=== PATIENT | female | born 1965 | race Caucasian/White ===

== ENCOUNTER 2020-05-17 10:04 | Emergency (ER) | payer OTHER ==
[~2020-05-17] VITALS: Ht 172.7 cm; Wt 103.6 kg
[2020-05-17] MEDS ORDERED: KETOROLAC 30 MG/1 ML ONE ×2 (10:51→13:55)
[2020-05-17] MEDS ORDERED: ONDANSETRON 2MG/ML, 2ML ONE ×2 (10:51→13:21)
[2020-05-17] MEDS ORDERED: KETOROLAC 30 MG/1 ML IVPush ONE ×2 (11:00→13:30)
[2020-05-17] MEDS ORDERED: ONDANSETRON 2MG/ML, 2ML IVPush ONE ×2 (11:00→13:30)
[2020-05-17] MEDS ORDERED: SODIUM CHLORIDE 0.9% 1,000ML IVBOLUS ONE (11:00)
--- NOTE | 2020-05-17 11:03 | NUR ---
PT SITTING UPRIGHT ON GURNEY WITH EYES CLOSED. NAD, VSS. PT PROVIDED WARM BLANKET AND ICE CHIPS (OK PER MD) PER REQUEST. PT DENIES ANY ADDITIONAL NEEDS AT THIS TIME. Addendum: 05/17/20 at 1132 by SHADE PT SITTING UPRIGHT ON GURNEY WITH EYES CLOSED. NAD. PT NOTED TO BE 88% ON ROOM AIR, PLACED ON 2L VIA NASAL CANNULA. PT PROVIDED WARM BLANKET AND ICE CHIPS (OK PER MD) PER REQUEST. PT DENIES ANY ADDITIONAL NEEDS AT THIS TIME.
[2020-05-17 11:14] LABS: BASOPHILS % (AUTO) 0 % (0-1); EOSINOPHILS % (AUTO) 1 % (1-7); LYMPHOCYTES % (AUTO) 8 % (22-44); MEAN CORPUSCULAR HEMOGLOBIN 31.1 pg (27.0-34.8); MEAN CORPUSCULAR HGB CONC 34.3 g/dL (32.4-35.8); MEAN PLATELET VOLUME 8.4 fL (7.4-10.4); MONOCYTES % (AUTO) 2 % (2-9); NEUTROPHILS % (AUTO) 89 % (42-75); PLATELET COUNT 163 x10^3/uL (130-400); RED BLOOD COUNT 4.33 x10^6/uL (3.82-5.3); RED CELL DISTRIBUTION WIDTH 13.7 % (9.6-15.2)
[2020-05-17 11:20] LABS: ALANINE AMINOTRANSFERASE 25 U/L (12-78); ALBUMIN 3.8 g/dL (3.4-5.0); ANION GAP 9 mmol/L (5-15); CALCIUM 8.4 mg/dL (8.5-10.1); CHLORIDE 110 mmol/L (98-107); CREATININE 1.06 mg/dL (0.55-1.02)
[2020-05-17 11:24] LABS: ALKALINE PHOSPHATASE 87 U/L (45-117); TOTAL PROTEIN 7.2 g/dL (6.4-8.2); TROPONIN I < 0.015 ng/mL (0.000-0.045)
[2020-05-17 11:35] LABS: MD SCAN
--- NOTE | 2020-05-17 12:05 | NUR ---
PT TO IMAGING
[2020-05-17] MEDS ORDERED: OMNIPAQUE 350 MG/ML, 75ML BOTTLE ONE (12:18)
--- NOTE | 2020-05-17 12:34 | NUR ---
BREAK RN: UA TO LAB.
--- NOTE | 2020-05-17 13:15 | NUR ---
PT SITTING UPRIGHT ON GURSAMANTHA, BRANDEN, VSS. PT REPORTS INCREASED RIGHT SIDE PAIN AND REQUESTS MD RITESH NOTIFIED. WILL MEDICATE PER EMAR. NO ADDITIONAL NEEDS AT THIS TIME. CALL LIGHT AND PERSONAL BELONGINGS WITHIN REACH.
[2020-05-17] MEDS ORDERED: MORPHINE SULFATE 4 MG/ML, 1ML ONE (13:21)
[2020-05-17] MEDS ORDERED: MORPHINE SULFATE 4 MG/ML, 1ML IVPush PRN (13:30)
--- NOTE | 2020-05-17 14:36 | NUR ---
UP TO BATHROOM WITH SALES PLANNING ANALYST
--- NOTE | 2020-05-17 15:02 | NUR ---
PT PROVIDED I.S. INSTRUCTIONS. PT REQUESTS CUP OF WATER, NO ADDITIONAL NEEDS AT THIS TIME. CALL LIGHT AND PERSONAL BELOINGS WITHIN REACH. WILL CONTINUE TO MONITOR. PT REPORTS DECREASED PAIN FOLLOWING PAYROLL ASSISTANT.
[2020-05-17 15:04] LABS: MICROSCOPIC NOT IND
--- NOTE | 2020-05-17 15:48 | NUR ---
ERP AT BEDSIDE
[2020-05-17 16:04] VITALS: BP 148/71
--- NOTE | 2020-05-17 16:15 | NUR ---
Patient given discharge instructions and they have confirmed that they understand the instructions and use of i.s., pt agreed to using regularly until f/u tomorrow. Patient ambulatory with steady gait.
== END 2020-05-17 16:24 | disposition home or self-care (01) ==
LOC: ED 10:47
DX: N20.1 Calculus of ureter (principal); R10.9 Unspecified abdominal pain; R09.02 Hypoxemia; R11.2 Nausea with vomiting, unspecified; E11.9 Type 2 diabetes mellitus without complications; Z85.820 Personal history of malignant melanoma of skin
CPT/HCPCS: 36415; 71045; 71275; 74176; 80053; 81003; 83880; 84484; 85025; 85379; 93005; 96361; 96374; 96375; 96376; 99285; J1885; J2270; J2405; J7030; Q9967